=== PATIENT | male | born 1990 | race Caucasian/White ===

== ENCOUNTER 2016-09-14 01:34 | Emergency (ER) | payer SELFPAY ==
--- NOTE | ~2016-09-14 | ER ---
PATIENT'S NAME: STEFF DEVLIN [facility] AGE: 25 Y [address] ROOM: [place] [address] LOCATION: [facility] ADMIT DATE: 09/14/2016 ER/Outpatient Report DISCHARGE DATE: 09/14/2016 FAMILY PHYSICIAN: PHYSICIAN, NO ATTENDING PHYSICIAN: Stefan Ball TIME OF ARRIVAL: 0139 hours. TIME OF EVALUATION: 0157 hours. CHIEF COMPLAINT: Abdominal pain. HISTORY OF PRESENT ILLNESS: The patient is a 25-year-old male who presents to the emergency department today with a chief complaint of abdominal pain. He reports it started 4 hours prior to arrival. He is having nausea and one episode of vomiting. He does report he is having some decreased urination at time. The right lower quadrant pain is crampy and it is currently 8/10 in severity. Last bowel movement was 09/13/2016. PAST MEDICAL HISTORY: Kidney stones. PAST SURGICAL HISTORY: Kidney stone stent, ear tubes. SOCIAL HISTORY: The patient denies any tobacco use. Reports occasional alcohol use. Denies any illicit drug use. ALLERGIES: NO KNOWN DRUG ALLERGIES. MEDICATIONS: Please see list. PRIMARY CARE DOCTOR: [facility]. REVIEW OF SYSTEMS: All systems are reviewed by myself are negative with the exception of those discussed in HPI and past medical history. PATIENT'S NAME: STEFF DEVLIN [facility] AGE: 25 Y [address] ROOM: [place] [address] LOCATION: [facility] ADMIT DATE: 09/14/2016 ER/Outpatient Report DISCHARGE DATE: 09/14/2016 FAMILY PHYSICIAN: PHYSICIAN, NO ATTENDING PHYSICIAN: Stefan Ball PHYSICAL EXAMINATION: VITAL SIGNS: Weight 109.6 kg, blood pressure 135/91, pulse 80, respiratory rate 18, temperature 97.3, and oxygen saturation 96% on room air. GENERAL: The patient is a 25-year-old male, appears stated age, in mild-to- moderate acute distress. HEENT: Normocephalic, atraumatic. Pupils are equal, round, and reactive to light and accommodation. Extraocular motions are intact. Nares are patent. Bilateral TMs are clear. Oropharynx is clear. NECK: Supple. There is no nuchal rigidity. CARDIOVASCULAR: Regular rate and rhythm. No murmurs, rubs, or gallops. LUNGS: Clear to auscultation bilaterally. No wheezes, rales, or rhonchi. ABDOMEN: Soft. Mild right lower quadrant tenderness to palpation. No rebound, rigidity, or guarding. Positive bowel sounds. MUSCULOSKELETAL: The patient moves all 4 extremities. A 5/5 muscle strength. SKIN: Warm, dry. There are no rashes or lesions noted. LABS AND X-RAYS: Labs and x-rays are obtained. Urinalysis does show 30 protein, 5 ketones, 1 urobilinogen, 250 blood, 10-20 rbcs, few bacteria, otherwise unremarkable. CBC is unremarkable. CMP is unremarkable. CT scan of the abdomen and pelvis stone protocol is obtained and is interpreted by myself as well as read by the radiologist and it does show distal right ureter stone measuring 7 x 5 mm with moderate hydronephrosis noted. IMPRESSION: 1. Acute distal right ureterolithiasis with moderate hydronephrosis. 2. Initial visit. EMERGENCY DEPARTMENT COURSE: The patient brought back to the examination room. Seen and evaluated by myself. An IV is established. Laboratory analysis and imaging are obtained as described above. The patient is given 4 mg of Zofran and 30 mg of Toradol IV with improvement in the patient's symptoms. He still does continue to have pain. He is given 5 mg of morphine IV with significant improvement. The patient's pain is down to 2/10. He is given a liter of normal saline. I have discussed results with the patient and family is at the bedside. I have written a prescription for Flomax as well as [place] for home. The patient has seen Dr. Armstrong in the past. I have asked he calls the clinic to make an appointment as soon as possible. Recommended in 2 days for reevaluation. I have discussed return to care instructions including worsening pain, worsening symptoms, inability to urinate, or any other concerns to return to the emergency department as soon as possible. The patient is agreeable and family is agreeable without further questions at this time. PATIENT'S NAME: STEFF DEVLIN [facility] AGE: 25 Y [address] ROOM: [place] [address] LOCATION: [facility] ADMIT DATE: 09/14/2016 ER/Outpatient Report DISCHARGE DATE: 09/14/2016 FAMILY PHYSICIAN: PHYSICIAN, NO ATTENDING PHYSICIAN: Stefan Ball DISPOSITION: The patient is discharged home in good condition. DO MO PAULA/modl /[id number] d: 09/14/16526 t: 09/14/16 1816, OUTPATIENT REPORT
[2016-09-14 02:25] LABS: BILIRUBIN URINE NEGATIVE (NEGATIVE); BLOOD URINE 250 /UL (NEGATIVE); GLUCOSE URINE NEGATIVE (NEGATIVE); KETONE URINE 5 mg/dL (NEGATIVE); LEUKOCYTES URINE NEGATIVE /UL (NEGATIVE); NITRITE URINE NEGATIVE (NEGATIVE); PROTEIN URINE 30 mg/dL (NEGATIVE); UROBILINOGEN URINE 1 mg/dL (NORMAL)
[2016-09-14 02:26] LABS: COLOR URINE YELLOW (YELLOW); TURBIDITY URINE CLEAR (CLEAR)
[2016-09-14 02:27] LABS: BASOPHIL # 0.1 K/uL (0.0-0.2); BASOPHIL % 0.6 %; EOSINOPHIL # 0.2 K/uL (0.0-0.5); EOSINOPHIL % 1.6 %; HEMATOCRIT 43.4 % (37.0-53.0); HEMOGLOBIN 14.8 g/dL (12.0-17.0); IMMATURE GRANULOCYTE % 0.3 %; LYMPHOCYTE # 3.1 K/uL (0.8-4.0); LYMPHOCYTE % 32.5 %; MCH 28.7 pg (27.0-34.0); MCHC 34.1 gm/dL (32.0-36.5); MCV 84.1 fl (83.0-98.0); MONOCYTE # 0.7 K/uL (0.0-1.0); MONOCYTE % 7.4 %; MPV 10.4 fl (9.4-12.4); NEUTROPHIL # (ANC) 5.5 K/uL (1.4-9.0); NEUTROPHIL % 57.6 %; NRBC % 0 /100WBC (0-0.00); PLATELET COUNT 353 K/uL (150-450); RBC 5.16 M/uL (4.00-6.00); RDW-CV 12.4 % (11.9-14.6); WBC 9.5 K/uL (4.0-11.0)
[2016-09-14 02:39] LABS: WBC URINE NEGATIVE #/HPF (NEGATIVE)
[2016-09-14 02:39] LABS: ALK PHOS 82 IU/L (33-138); ALT 55 IU/L (12-78); BLOOD UREA NITROGEN 10 mg/dL (6-24); CALCIUM 8.9 mg/dL (8.5-10.5); CHLORIDE 110 mMol/L (96-110); CO2 25 mMol/L (22-32); CREATININE 0.9 mg/dL (0.6-1.3); ESTIMATED GFR (MDRD EQUATION) > 60; TOTAL BILIRUBIN 0.2 mg/dL (0.0-1.5); TOTAL PROTEIN 7.5 g/dL (6.0-8.4)
[2016-09-14 02:40] LABS: BACTERIA URINE FEW (NEGATIVE); EPITHELIAL URINE NEGATIVE #/HPF (NEGATIVE); MUCUS URINE 2+ (NEGATIVE); RENAL EPITH URINE NEGATIVE #/HPF (NEGATIVE)
[2016-09-14 02:41] LABS: ANION GAP 11.1 (10.0-19.0); AST 31 IU/L (10-40); POTASSIUM 4.1 mMol/L (3.7-5.1)
[2016-09-14 02:42] LABS: SODIUM 142 mMol/L (135-145)
== END 2016-09-14 03:20 | disposition disaster alternative care site (69) ==
LOC: GMED 01:34
PROVIDERS: Emergency Medicine
DX: N13.2 Hydronephrosis with renal and ureteral calculous obstruction (principal)
CPT/HCPCS: J1885; J2270; J2405; J7030